=== PATIENT | male | born 1970 | race Caucasian/White ===

== ENCOUNTER 2016-11-06 12:40 | Emergency (ER) | payer OTHER ==
--- NOTE | 2016-11-06 13:48 | EDM.PDOC ---
ED HPI SEIZURE COMPLAINT - General Chief Complaint: Syncope Stated Complaint: LEFT WRIST & LEG - [facility] Time Seen by Provider: 11/06/16 13:47 Source of Information: Reports: Patient, Old records, RN, RN notes reviewed History Limitations: Reports: No limitations - History of Present Illness INITIAL COMMENTS - FREE TEXT/NARRATIVE: Pt c/o left wrist pain and swelling sustained approx. 3 days ago when he fainted for an unknown reason at home. Denies CP, SOB, or any prior Hx of syncope. Denies any other injury. Also pt accidentally cut his left medial thigh approx. 4 days ago and wanted it checked to make sure it isn't getting infected. Timing/Duration: Reports: seconds: (unknown) Event Occurred (Where): home Event (Witnessed/Unwitnessed): unwitnessed Location: Reports: upper extremity, left Context: Denies: recent ETOH, new/change in medications, missed med dose(s), illness, trauma, photo stimulation, activity/exercise Pre Event Symptom(s): Reports: other (lightheaded) Event Symptoms: Reports: syncope Post Event Symptoms: Reports: other (none) Associated Injuries: Reports: upper extremity, left - Related Data Allergies/ADRs: Allergies Allergy/AdvReac Type Severity Reaction Status Date / Time No Known Allergies Allergy Verified 11/06/16 13:31 Past Medical History Psychiatric History: Reports: Depression, PTSD Social & Family History - Family History Family Medical History: Noncontributory - Tobacco Use Smoking Status *Q: Current Every Day Smoker Tobacco Use Within Last Twelve Months: Cigarettes Smoking Cessation Information Provided To Patient: No - Alcohol Use Alcohol Use History: No - Recreational Drug Use Recreational Drug Use: No - Living Situation & Occupation Living situation: Reports: alone Occupation: disabled ED ROS GENERAL - Review of Systems Review Of Systems: ROS reveals no pertinent complaints other than HPI. - Physical Exam Exam: See Below Exam Limited By: No limitations General Appearance: alert, WD/WN, no apparent distress Eye Exam: bilateral eye: EOMI, normal inspection Ears: normal external exam, hearing grossly normal Nose: normal inspection, normal mucosa, no blood Throat/Mouth: Normal inspection, Normal lips, Normal teeth, Normal gums, Normal oropharynx, Normal voice, No airway compromise Head Exam: atraumatic, normocephalic Neck: normal inspection, supple, non-tender, full range of motion. No: lymphadenopathy (L), lymphadenopathy (R) Respiratory/Chest: no respiratory distress, lungs clear, normal breath sounds, no accessory muscle use, chest non-tender Cardiovascular: normal peripheral pulses, regular rate, rhythm, no edema, no gallop, no JVD, no murmur, no rub GI/Abdominal: normal bowel sounds, soft, non tender, no distention (Male) Exam: Deferred Rectal (Males) Exam: Deferred Neuro Exam (Abbreviated): alert, oriented, CN II-XII intact, normal cognition, normal gait, no motor/sensory deficits Back Exam: normal inspection Extremities: normal capillary refill, joint swelling (left wrist), limited range of motion (due to pain at left wrist). No: increased warmth, pallor, redness Psychiatric: normal affect, normal mood Skin Exam: Warm, Dry, Normal color, No rash, Wound/incision (subacute left thigh linear laceration 2cm, heal) ED PROCEDURES - Splinting Left Upper Extremity Splint site: left wrist Pre-procedure NV status: normal Post-procedure NV status: normal Splint material: metal Splint design: volar Applied & form fitted by: nurse Provider post-splint application NV check: NV status normal, good position Complications: No EKG INTERPRETATION EKG Date: 11/06/16 Time: 14:12 Rhythm: other (SR) Rate (beats/min): 71 [place]: normal P-wave: present QRS: other (nonspecific IVCD) ST-T: normal QT: normal Comparison: NA - no prior EKG Course - Vital Signs Last Recorded V/S: VS review on RN's documentation. - Orders/Labs/Meds Orders: Active Orders 24 hr Category Date Time Status EKG 12 Lead [EKG Documentation Completion] [RC] STAT Care 11/06/16 14:10 Active Orthostatic Vital Signs [RC] ASDIRECTED Care 11/06/16 14:30 Active Vaccines to be Administered [RC] PER UNIT ROUTINE Care 11/06/16 15:04 Active DME for Discharge [COMM] Routine Oth 11/06/16 14:59 Ordered Labs: Laboratory Tests 11/06/16 11/06/16 Range/Units 14:20 14:20 WBC 7.4 (5.0-10.0) 10^3/uL RBC 3.76 L (4.6-6.2) 10^6/uL Hgb 11.7 L (14.0-18.0) g/dL Hct 36.0 L (40.0-54.0) % MCV 95.7 (80-100) fL MCH 31.1 (27.0-34.0) pg MCHC 32.5 L (33.0-35.0) g/dL Plt Count 188 (150-450) 10^3/uL Neut % (Auto) 56.1 (42.2-75.2) % Lymph % (Auto) 34.7 (20.5-50.1) % [place] % (Auto) 7.3 (2-8) % Eos % (Auto) 1.2 (1.0-3.0) % Baso % (Auto) 0.7 (0.0-1.0) % Sodium 137 (135-145) mmol/L Potassium 4.0 (3.6-5.0) mmol/L Chloride 105 (101-111) mmol/L Carbon Dioxide 23.0 (21.0-31.0) mmol/L Anion Gap 13.0 BUN 15 (7-18) mg/dL Creatinine 0.7 (0.6-1.3) mg/dL Est Cr Clr Drug Dosing TNP Estimated GFR (MDRD) > 60 BUN/Creatinine Ratio 21.42 Glucose 107 H (74-105) mg/dL Calcium 8.5 (8.4-10.2) mg/dl Total Bilirubin 0.5 (0.2-1.0) mg/dL AST 24 (10-42) IU/L ALT 20 (10-60) IU/L Alkaline Phosphatase 77 (42-121) IU/L Troponin I < 0.02 (0.00-0.02) ng/ml Total Protein 7.0 (6.7-8.2) g/dl Albumin 4.1 (3.2-5.5) g/dl Globulin 2.9 Albumin/Globulin Ratio 1.41 Meds: Medications Discontinued Medications Generic Name Dose Route Start Last Admin Trade Name Freq PRN Reason Stop Dose Admin Diphtheria/Tetanus/Acell Pertussis 0.5 ml 11/06/16 15:04 Adacel IM 11/06/16 15:05 .ONCE ONE - Radiology Interpretation Free Text/Narrative:: Xray left wrist: no fracture, sprain per Rad. report. CT Results Date: 11/06/16 Departure - Departure Time of Disposition: 14:51 Disposition: Home, Self-Care 01 Condition: fair Clinical Impression: Left wrist sprain Qualifiers: Encounter type: initial encounter Qualified Code(s): S63.502A - Unspecified sprain of left wrist, initial encounter Syncope Qualifiers: Syncope type: unspecified Qualified Code(s): R55 - Syncope and collapse Laceration of left thigh without complication Qualifiers: Encounter type: initial encounter Qualified Code(s): S71.112A - Laceration without foreign body, left thigh, initial encounter Anemia Qualifiers: Anemia type: unspecified type Qualified Code(s): D64.9 - Anemia, unspecified Instructions: Syncope, [id number], Wrist Sprain, Nonsutured Laceration Care Forms: ED Department Discharge Additional Instructions: Rest, ice pack, and elevate left wrist to reduce pain and swelling. Wear left wrist splint as needed for comfort for 7 to 10 days. May use over the counter Bacitracin Ointment to left thigh wound twice a day for 5 days. Follow up in clinic this with for recheck and further evaluation of your syncopal (fainting) episode, and mild anemia. - My Orders Last 24 Hours: My Active Orders 11/06/16 14:10 EKG 12 Lead [EKG Documentation Completion] [RC] STAT 11/06/16 14:30 Orthostatic Vital Signs [RC] ASDIRECTED 11/06/16 14:59 DME for Discharge [COMM] Routine 11/06/16 15:04 Vaccines to be Administered [RC] PER UNIT ROUTINE - Assessment/Plan Last 24 Hours: My Active Orders 11/06/16 14:10 EKG 12 Lead [EKG Documentation Completion] [RC] STAT 11/06/16 14:30 Orthostatic Vital Signs [RC] ASDIRECTED 11/06/16 14:59 DME for Discharge [COMM] Routine 11/06/16 15:04 Vaccines to be Administered [RC] PER UNIT ROUTINE
--- NOTE | 2016-11-06 14:00 | CR ---
CLINICAL HISTORY: 46-year-old male with swelling and pain left wrist associated with fall. INTERPRETATION: Subtle deformity radial styloid has appearance of old fracture despite some overlyin g soft tissue swelling. Clinical correlation? Chronic reactive arthritic changes first carpometacarpal, first metacarpophalangeal and interphalang eal joints of the left hand. No sign of foreign body, metacarpal or other wrist fracture/dislocation. CONCLUSION: Chronic arthritis. Soft tissue swelling consistent with severe sprain. (Apparent old dis annette radial fracture).
[2016-11-06 14:48] LABS: CHLORIDE,CL 105 mmol/L (101-111); SODIUM,NA 137 mmol/L (135-145)
[2016-11-06] MEDS ORDERED: Diphtheria,Pertussis(Acell),Tetanus Vaccine 0.5 ML SDV IM ONE (15:04)
[2016-11-06] MEDS ORDERED: Ibuprofen 800 MG Tab PO ONE (15:12)
[2016-11-06 15:16] VITALS: BP 122/77
--- NOTE | 2016-11-08 07:33 | EKG ---
11/06/2016- AGUILA CHRISTIANSEN R - EKG per my reading shows sinus rhythm at a rate of 71. No acute ST changes. [facility] /[id number]
== END 2016-11-06 15:26 | disposition home or self-care (01) ==
LOC: DL.ED 12:40
DX: S71.112A Laceration without foreign body, left thigh, initial encounter (principal); S63.502A Unspecified sprain of left wrist, initial encounter; R55 Syncope and collapse; D64.9 Anemia, unspecified; F32.9 Major depressive disorder, single episode, unspecified; F17.210 Nicotine dependence, cigarettes, uncomplicated; Z23 Encounter for immunization; W45.8XXA Other foreign body or object entering through skin, initial encounter
CPT/HCPCS: 29125; 36415; 73110-LT; 80053; 84484; 85025; 90471; 90715; 93005; 93010; 99284; 99285

== ENCOUNTER 2018-11-13 07:05 | Day surgery (SDC) | payer OTHER ==
[~2018-11-13 07:05] MED LIST: Midazolam 1 MG/ML 2 ML SDV ONE; fentaNYL 100 MCG/2 ML SDV ONE
[2018-11-13] MEDS ORDERED: Benzocaine 20% Topical Spray UD MUCMEM ONE ×2 (07:06→08:02)
[2018-11-13] MEDS ORDERED: fentaNYL 100 MCG/2 ML SDV IV ONE ×4 (07:06→08:15)
[2018-11-13] MEDS ORDERED: Midazolam 1 MG/ML 2 ML SDV IV ONE ×9 (07:06→08:18)
[2018-11-13] MEDS ORDERED: Dextrose 5%-0.45% NaCl 1,000 ML IV SCH (07:45)
--- NOTE | 2018-11-13 09:39 | OR ---
DATE: 11/13/2018 PREOPERATIVE DIAGNOSIS: Anemia. POSTOPERATIVE DIAGNOSIS: Anemia. PROCEDURE: EGD. ANESTHESIA: Conscious sedation with IV Versed and fentanyl. SPECIMEN: None. OPERATIVE FINDINGS: Normal EGD. RECOMMENDATION: We will proceed with colonoscopy. INDICATION FOR PROCEDURE: This 48-year-old male has anemia with a hemoglobin of 10. DESCRIPTION OF PROCEDURE: After adequate preparation, a gastroscope was inserted into the esophagus. This was passed down to the distal esophagus. He shows no evidence of reflux esophagitis, masses, ulcers, or bleeding sites. He does not have a hiatal hernia. The scope was advanced into the stomach. Both forward and retroflexed views were done and are normal. The scope was advanced through the pylorus, and the duodenum was also normal. Air was suctioned from the stomach, and the scope removed. [facility] /[id number] cc: [facility]
--- NOTE | 2018-11-13 10:06 | OR ---
DATE: 11/13/2018 PREOPERATIVE DIAGNOSIS: Anemia with hemoglobin of 10. POSTOPERATIVE DIAGNOSIS: Anemia with hemoglobin of 10. PROCEDURE: Total colonoscopy with snare excision of small sigmoid polyp and cautery excision of other multiple small sigmoid polyps. ANESTHESIA: Conscious sedation with IV Versed and fentanyl. SPECIMEN: Sigmoid polyp. OPERATIVE FINDINGS: Normal colonoscopy with an occasional scattered sigmoid diverticula and multiple small polyps. I did not find any explanation for his anemia in the colon. INDICATION FOR PROCEDURE: This 48-year-old male has a hemoglobin of 10. He has not had a prior colonoscopy. DESCRIPTION OF PROCEDURE: After adequate preparation, a colonoscope was inserted into the rectum. This was easily passed all the way to the cecum. Confirmation of the cecum was made by visualization of the ileocecal valve and palpation in the right lower quadrant. The bowel prep was very good. On withdrawal of the scope, he does have a few scattered diverticula, mostly on the left side of the colon, and in the lower sigmoid, had one relatively larger polyp and multiple small polyps surrounding this. I snared off the larger of the polyps and retrieved it for pathological evaluation. The other 4 to 5 small polyps were cauterized with the Bovie. Air was suctioned from the colon, and the scope removed. [facility] /[id number] cc: [facility]
== END 2018-11-13 10:35 | disposition home or self-care (01) ==
LOC: DL.ENDO 07:05
PROVIDERS: ATTEND Surgery
DX: D64.9 Anemia, unspecified (principal); D12.5 Benign neoplasm of sigmoid colon; K57.30 Diverticulosis of large intestine without perforation or abscess without bleeding; F17.210 Nicotine dependence, cigarettes, uncomplicated
CPT/HCPCS: 43235; 45385; 88305; A9270; J2250; J3010; J7042; 45384

== ENCOUNTER 2020-03-14 12:27 | Emergency (ER) | payer OTHER ==
[2020-03-14] MEDS ORDERED: Lidocaine 1% 30 ML SDV INJECT ONE (12:34)
[2020-03-14] MEDS ORDERED: Bacitracin Oint 1 GM U/D Packet TOP ONE (12:34)
--- NOTE | 2020-03-14 12:56 | EDM.PDOC ---
ED HPI GENERAL MEDICAL PROBLEM - General Stated Complaint: cut hand Time Seen by Provider: 03/14/20 12:35 Source of Information: Reports: Patient History Limitations: Reports: No Limitations - History of Present Illness INITIAL COMMENTS - FREE TEXT/NARRATIVE: This 50 yo male patient reports to the ED with a laceration to his left thumb. The patient reports he was cutting leather with a scalpel when he accidentally cut his hand. The patient attempted to stop the bleeding at home, but could not get the bleeding under control. Onset: Today Duration: Minutes: Location: Reports: Upper Extremity, Left Quality: Reports: Ache, Dull Severity: Mild Improves with: Reports: None Worsens with: Reports: None Context: Reports: Activity Associated Symptoms: Reports: No Other Symptoms - Related Data Allergies Allergy/AdvReac Type Severity Reaction Status Date / Time No Known Allergies Allergy Verified 03/14/20 12:31 Home Meds: Home Meds Ibuprofen [Motrin] 800 mg PO TID 11/11/18 [History] LORazepam 0.5 mg PO .PRN PRN 11/11/18 [History] Omeprazole 20 mg PO BID 11/11/18 [History] Prazosin HCl [Prazosin] 10 mg PO BEDTIME 11/11/18 [History] QUEtiapine Fumarate [Seroquel Xr] 600 mg PO BEDTIME 11/11/18 [History] Zolpidem [Ambien] 10 mg PO .PRN BEDTIME PRN 11/11/18 [History] atorvaSTATin Calcium [Atorvastatin Calcium] 80 mg PO BEDTIME 11/11/18 [History] carBAMazepine [Carbamazepine] 200 mg PO ASDIRECTED 11/11/18 [History] FLUoxetine HCl [Prozac] 60 mg PO DAILY 11/12/18 [History] Multivitamin with Minerals [Multivitamins with Minerals] 1 each PO DAILY 11/12/18 [History] metFORMIN [Glucophage XR] 500 mg PO BIDMEALS 03/14/20 [History] Past Medical History HEENT History: Reports: Impaired Vision Other HEENT History: reading glasses. lower front implanted Cardiovascular History: Reports: High Cholesterol, Hypertension Respiratory History: Reports: None Gastrointestinal History: Reports: GERD Genitourinary History: Reports: None Musculoskeletal History: Reports: Arthritis, Other (See Below) Other Musculoskeletal History: Left wrist. small ganglion cyst of left wrist. Chondromalacia of right knee. Complete tear of right rotator cuff. Arthrosis of right acromioclavicular joint. Tendinopathy of right biceps tendon Neurological History: Reports: Seizure, Other (See Below) Other Neuro History: PTSD Psychiatric History: Reports: Depression, PTSD Endocrine/Metabolic History: Reports: Other (See Below) Other Endocrine/Metabolic History: pre diabetic Hematologic History: Reports: Anemia Immunologic History: Reports: None Oncologic (Cancer) History: Reports: None Dermatologic History: Reports: None - Infectious Disease History Infectious Disease History: Reports: None - Past Surgical History HEENT Surgical History: Reports: None Cardiovascular Surgical History: Reports: None Male Surgical History: Reports: Vasectomy Musculoskeletal Surgical History: Reports: Arthroscopic Knee, Other (See Below) Other Musculoskeletal Surgeries/Procedures:: Arthroscopy of kne ACL\LCL RECON WITH LTP FX [place] 1992. Rigth arthroscopic subscapularis, supraspinatus, infraspinatus repairs, subacromial decompression, DCE, biceps tenodesis, DOS: 11/29/17 Social & Family History - Family History Family Medical History: Noncontributory - Tobacco Use Smoking Status *Q: Current Every Day Smoker Years of Tobacco use: 30 Packs/Tins Daily: 1 - Caffeine Use Caffeine Use: Reports: Coffee Caffeine Use Comment: 5-6 cups dialy - Recreational Drug Use Recreational Drug Use: No - Living Situation & Occupation Living situation: Reports: Alone Occupation: Disabled ED ROS GENERAL - Review of Systems Review Of Systems: Comprehensive ROS is negative, except as noted in HPI. ED EXAM, SKIN/RASH Exam: See Below Exam Limited By: No Limitations General Appearance: Alert, WD/WN, No Apparent Distress Eye Exam: Bilateral Eye: EOMI, Normal Inspection, PERRL Ears: Normal External Exam Nose: Normal Inspection, No Blood Throat/Mouth: Normal Lips, Normal Teeth, Normal Voice, No Airway Compromise Head: Atraumatic, Normocephalic Neck: Normal Inspection, Supple, Non-Tender, Full Range of Motion Respiratory/Chest: No Respiratory Distress, Lungs Clear, Normal Breath Sounds, No Accessory Muscle Use, Chest Non-Tender Cardiovascular: Normal Peripheral Pulses, Regular Rate, Rhythm GI/Abdominal: Normal Bowel Sounds, Soft, Non-Tender, No Organomegaly, No Distention, No Abnormal Bruit, No Mass (Male) Exam: Deferred Rectal (Males) Exam: Deferred Back Exam: Normal Inspection Extremities: Normal Range of Motion, Non-Tender, No Pedal Edema, Normal Capillary Refill, Arm Pain Neurological: Alert, Oriented, Normal Gait Psychiatric: Normal Affect, Normal Mood Skin: Warm, Dry, Normal Color, No Rash, Wound/Incision Location, Skin: Upper Extremity, Left Characteristics: Linear Associated features: No: Warmth, Tenderness, Swelling, Induration Lymphatic: No Adenopathy ED SKIN PROCEDURES - Laceration/Wound Repair Left Digit - 1st (Thumb) Appearance: Subcutaneous Distal NVT: Neuro & Vascular Intact Anesthetic Type: Local Local Anesthesia - Lidocaine (Xylocaine): 1% Plain Local Anesthetic Volume: 3cc Skin Prep: Chlorhexidine (Hibiciens), Saline Exploration/Debridement/Repair: Wound Explored, No Foreign Material Found Closed with: Sutures Lac/Wound length In cm: 2.0 Suture Size: 4-0 # of Sutures: 6 Suture Type: Prolene, Interrupted, Simple Drain Placement: No Sterile Dressing Applied: Nurse Tetanus Status Addressed: Other (Last was in 2017) Complications: No Course - Vital Signs Last Recorded V/S: Last Vital Signs Temp 36.3 C 03/14/20 12:35 Pulse 76 03/14/20 12:35 Resp 16 03/14/20 12:35 BP 141/73 H 03/14/20 12:35 Pulse Ox 98 03/14/20 12:35 - Orders/Labs/Meds Meds: Medications Discontinued Medications Generic Name Dose Route Start Last Admin Trade Name Rejiq PRN Reason Stop Dose Admin Bacitracin 1 dose 03/14/20 12:34 03/14/20 12:47 Bacitracin Oint 1 Gm TOP 03/14/20 12:35 1 dose ONETIME ONE Administration Lidocaine HCl 30 ml 03/14/20 12:34 03/14/20 12:42 Xylocaine-Mpf 1% INJECT 03/14/20 12:35 30 ml ONETIME ONE Administration Departure - Departure Time of Disposition: 12:55 Disposition: Home, Self-Care 01 Condition: Fair Clinical Impression: Laceration of left thumb Qualifiers: Encounter type: initial encounter Damage to nail status: without damage Foreign body presence: without foreign body Qualified Code(s): S61.012A - Laceration without foreign body of left thumb without damage to nail, initial encounter - Discharge Information *PRESCRIPTION DRUG MONITORING PROGRAM REVIEWED*: No *COPY OF PRESCRIPTION DRUG MONITORING REPORT IN PATIENT AMY: No Instructions: Laceration Care, Adult, [id number], Sutures, Stephany, or Adhesive Wound Closure, [id number] Forms: ED Department Discharge Care Plan Goals: The patient was advised of the examination results during the visit. The laceration margins were well approximated during the visit. The patient should keep the area clean and dry over the next 48 hours. The patient should have the sutures removed in about 14 days. If the patient has any additional symptoms or concerns, the patient should either return to the emergency department or follow-up with his primary care facility Sepsis Event Note (ED) - Evaluation Sepsis Screening Result: No Definite Risk - Focused Exam Vital Signs: Vital Signs Temp Pulse Resp BP Pulse Ox 03/14/20 12:35 36.3 C 76 16 141/73 H 98
== END 2020-03-14 13:22 | disposition home or self-care (01) ==
LOC: DL.ED 12:27
DX: S61.012A Laceration without foreign body of left thumb without damage to nail, initial encounter (principal); I10 Essential (primary) hypertension; E78.00 Pure hypercholesterolemia, unspecified; K21.9 Gastro-esophageal reflux disease without esophagitis; M19.90 Unspecified osteoarthritis, unspecified site; F32.9 Major depressive disorder, single episode, unspecified; F17.210 Nicotine dependence, cigarettes, uncomplicated; Z79.899 Other long term (current) drug therapy; W26.8XXA Contact with other sharp object(s), not elsewhere classified, initial encounter
CPT/HCPCS: 12001; 99282; J2001

== ENCOUNTER 2020-05-02 17:14 | Emergency (ER) | payer OTHER ==
[2020-05-02] MEDS ORDERED: Cephalexin 500 MG Cap PO ONE ×2 (17:15→18:23)
--- NOTE | 2020-05-02 17:27 | EDM.PDOC ---
ED HPI GENERAL MEDICAL PROBLEM - General Stated Complaint: LEFT FINGER, POINTER Time Seen by Provider: 05/02/20 17:26 Source of Information: Reports: Patient, RN, RN Notes Reviewed History Limitations: Reports: No Limitations - History of Present Illness INITIAL COMMENTS - FREE TEXT/NARRATIVE: Patient presents to ER with complaint of laceration/avulsion to the left distal index finger. Patient states he was using a table saw when he got his finger caught in a saw. Patient states tetanus was last updated in 2017. Onset: Today, Sudden Location: Reports: Upper Extremity, Left left first digit Pain Score (Numeric/FACES): 10 - Related Data Allergies Allergy/AdvReac Type Severity Reaction Status Date / Time No Known Allergies Allergy Verified 05/02/20 17:40 Home Meds: Home Meds Ibuprofen [Motrin] 800 mg PO TID 11/11/18 [History] LORazepam 0.5 mg PO .PRN PRN 11/11/18 [History] Omeprazole 20 mg PO BID 11/11/18 [History] Prazosin HCl [Prazosin] 10 mg PO BEDTIME 11/11/18 [History] QUEtiapine Fumarate [Seroquel Xr] 600 mg PO BEDTIME 11/11/18 [History] Zolpidem [Ambien] 10 mg PO .PRN BEDTIME PRN 11/11/18 [History] atorvaSTATin Calcium [Atorvastatin Calcium] 80 mg PO BEDTIME 11/11/18 [History] carBAMazepine [Carbamazepine] 200 mg PO ASDIRECTED 11/11/18 [History] FLUoxetine HCl [Prozac] 60 mg PO DAILY 11/12/18 [History] Multivitamin with Minerals [Multivitamins with Minerals] 1 each PO DAILY 11/12/18 [History] metFORMIN [Glucophage XR] 500 mg PO BIDMEALS 03/14/20 [History] Past Medical History HEENT History: Reports: Impaired Vision Other HEENT History: reading glasses. lower front implanted Cardiovascular History: Reports: High Cholesterol, Hypertension Respiratory History: Reports: None Gastrointestinal History: Reports: GERD Genitourinary History: Reports: None Musculoskeletal History: Reports: Arthritis, Other (See Below) Other Musculoskeletal History: Left wrist. small ganglion cyst of left wrist. Chondromalacia of right knee. Complete tear of right rotator cuff. Arthrosis of right acromioclavicular joint. Tendinopathy of right biceps tendon Neurological History: Reports: Seizure, Other (See Below) Other Neuro History: PTSD Psychiatric History: Reports: Depression, PTSD Endocrine/Metabolic History: Reports: Other (See Below) Other Endocrine/Metabolic History: pre diabetic Hematologic History: Reports: Anemia Immunologic History: Reports: None Oncologic (Cancer) History: Reports: None Dermatologic History: Reports: None - Infectious Disease History Infectious Disease History: Reports: None - Past Surgical History HEENT Surgical History: Reports: None Cardiovascular Surgical History: Reports: None Male Surgical History: Reports: Vasectomy Musculoskeletal Surgical History: Reports: Arthroscopic Knee, Other (See Below) Other Musculoskeletal Surgeries/Procedures:: Arthroscopy of kne ACL\LCL RECON WITH LTP FX TX 1992. Rigth arthroscopic subscapularis, supraspinatus, infraspinatus repairs, subacromial decompression, DCE, biceps tenodesis, DOS: 11/29/17 Social & Family History - Family History Family Medical History: Noncontributory - Caffeine Use Caffeine Use: Reports: Coffee Caffeine Use Comment: 5-6 cups dialy - Living Situation & Occupation Living situation: Reports: Alone Occupation: Disabled ED ROS GENERAL - Review of Systems Review Of Systems: Comprehensive ROS is negative, except as noted in HPI. ED EXAM, SKIN/RASH Exam: See Below Exam Limited By: No Limitations General Appearance: Alert, WD/WN, No Apparent Distress Eye Exam: Bilateral Eye: EOMI, Normal Inspection Ears: Normal External Exam, Hearing Grossly Normal Nose: Normal Inspection Throat/Mouth: Normal Inspection, Normal Voice, No Airway Compromise Head: Atraumatic, Normocephalic Neck: Normal Inspection, Supple, Non-Tender, Full Range of Motion Respiratory/Chest: No Respiratory Distress, Lungs Clear, Normal Breath Sounds, No Accessory Muscle Use, Chest Non-Tender Cardiovascular: Normal Peripheral Pulses, Regular Rate, Rhythm, No Edema, No Gallop, No JVD, No Murmur, No Rub Peripheral Pulses: 2+: Radial (L), Radial (R) GI/Abdominal: Normal Bowel Sounds, Soft, Non-Tender (Male) Exam: Deferred Rectal (Males) Exam: Deferred Back Exam: Normal Inspection, Full Range of Motion, NT Extremities: Normal Inspection, Normal Range of Motion, Non-Tender, No Pedal Edema, Normal Capillary Refill Neurological: Alert, Oriented, CN II-XII Intact, Normal Cognition, Normal Gait, Normal Reflexes, No Motor/Sensory Deficits Psychiatric: Normal Affect, Normal Mood Skin: Warm, Dry, Wound/Incision (5 cm laceration to the ventral and dorsal aspect of the left distal index finger, through the nailbed) Location, Skin: Upper Extremity, Left Lymphatic: No Adenopathy Course - Vital Signs Last Recorded V/S: Last Vital Signs Temp 97.6 F 05/02/20 17:30 Pulse 78 05/02/20 17:30 Resp 20 05/02/20 17:30 BP 142/83 H 05/02/20 17:30 Pulse Ox 97 05/02/20 17:30 - Orders/Labs/Meds Meds: Medications Discontinued Medications Generic Name Dose Route Start Last Admin Trade Name Freq PRN Reason Stop Dose Admin Bacitracin 1 dose 05/02/20 17:42 05/02/20 18:22 Bacitracin Oint 1 Gm TOP 05/02/20 17:43 1 dose ONETIME ONE Administration Cephalexin 500 mg 05/02/20 18:23 Keflex PO 05/02/20 18:24 ONETIME ONE Cephalexin Confirm 05/02/20 18:29 Keflex Administered 05/02/20 18:30 Dose 500 mg .ROUTE .STK-MED ONE Lidocaine/Epinephrine 20 ml 05/02/20 17:42 05/02/20 18:22 Xylocaine 1% With Epinephrine 1:100,000 INJECT 05/02/20 17:43 10 ml ONETIME ONE Administration - Re-Assessments/Exams Free Text/Narrative Re-Assessment/Exam: 05/02/20 18:34 Discussed patient case with Dr. Bedolla who states the patient will more than likely need an amputation. he states to clean the wound out, suture together what is able to be sutured. He states the patient should be seen in his clinic in the morning. Antibiotics ordered. Departure - Departure Time of Disposition: 18:28 Disposition: Home, Self-Care 01 Condition: Fair Clinical Impression: Open fracture of finger of left hand Qualifiers: Encounter type: initial encounter Finger: index finger Phalanx: distal Fracture alignment: displaced Qualified Code(s): S62.631B - Displaced fracture of distal phalanx of left index finger, initial encounter for open fracture Avulsion fracture of distal phalanx of finger Qualifiers: Encounter type: initial encounter Fracture type: open Qualified Code(s): S62.639B - Displaced fracture of distal phalanx of unspecified finger, initial encounter for open fracture - Discharge Information *PRESCRIPTION DRUG MONITORING PROGRAM REVIEWED*: No *COPY OF PRESCRIPTION DRUG MONITORING REPORT IN PATIENT AMY: No Instructions: Finger Fracture, Adult, [id number], Cast or Splint Care, Adult, [id number] Forms: ED Department Discharge Additional Instructions: Take cephalexin in the morning Be to the [facility] between 8 and 11 tomorrow morning [facility] [phone] Dr. Bedolla, Orthopedic Surgeon is who you will see Sepsis Event Note (ED) - Focused Exam Vital Signs: Vital Signs Temp Pulse Resp BP Pulse Ox 05/02/20 17:30 97.6 F 78 20 142/83 H 97
[2020-05-02] MEDS ORDERED: Lidocaine 1% with EPINEPHrine 1:100,000 20 ML MDV INJECT ONE (17:42)
[2020-05-02] MEDS ORDERED: Bacitracin Oint 1 GM U/D Packet TOP ONE (17:42)
--- NOTE | 2020-05-02 17:53 | CR ---
PROCEDURE INFORMATION: Exam: XR Left Finger(s) Exam date and time: 05/02/2020 5:28 PM Age: 50 years old Clinical indication: Other: Pain; Additional info: Finger in table saw, ? bone involvement TECHNIQUE: Imaging protocol: XR Left fingers. Views: Minimum 2 views. COMPARISON: No relevant prior studies available. FINDINGS: Bones/joints: There is a comminuted multi fragmented fracture of the distal tuft of the 2nd digit with associated soft tissue injury. The fracture extends to the joint. Soft tissues: Tissue swelling with radiopaque densities within the soft tissues. There is also a defect at the distal tuft consistent with subcutaneous injury. IMPRESSION: Comminuted fracture of the of the 2nd digit with extension of the fracture line to the DIP joint. There is associated soft tissue swelling and injury.
[2020-05-02] MEDS ORDERED: Cephalexin 500 MG Cap ONE (18:29)
== END 2020-05-02 18:38 | disposition home or self-care (01) ==
LOC: DL.ED 17:14
DX: S62.631B Displaced fracture of distal phalanx of left index finger, initial encounter for open fracture (principal); K21.9 Gastro-esophageal reflux disease without esophagitis; E78.00 Pure hypercholesterolemia, unspecified; I10 Essential (primary) hypertension; F32.9 Major depressive disorder, single episode, unspecified; Z79.899 Other long term (current) drug therapy; W23.0XXA Caught, crushed, jammed, or pinched between moving objects, initial encounter
CPT/HCPCS: 12002; 73140; 99283; A9270; 99284

== ENCOUNTER → 2022-08-29 | Day surgery (SDC) | payer OTHER ==
[~2022-08-29] MED LIST changes: +Dextrose 5%-0.45% NaCl 1,000 ML IV SCH; +Midazolam 1 MG/ML 2 ML SDV IV ONE; +fentaNYL 100 MCG/2 ML SDV IV ONE
== END | disposition home or self-care (01) ==
LOC: DL.ENDO 06:59
PROVIDERS: ATTEND Internal Medicine Gastroenterology
DX: D50.9 Iron deficiency anemia, unspecified (principal); E11.43 Type 2 diabetes mellitus with diabetic autonomic (poly)neuropathy; K31.84 Gastroparesis; E66.09 Other obesity due to excess calories; E78.5 Hyperlipidemia, unspecified; Z68.38 Body mass index [BMI] 38.0-38.9, adult; Z98.890 Other specified postprocedural states
CPT/HCPCS: 43239; 87077; J2250; J3010; J7042; 88305

== ENCOUNTER 2022-08-31 06:36 | Day surgery (SDC) | payer OTHER ==
[2022-08-31] MEDS ORDERED: Midazolam 1 MG/ML 2 ML SDV IV ONE ×7 (06:37→07:42)
[2022-08-31] MEDS ORDERED: fentaNYL 100 MCG/2 ML SDV IV ONE ×3 (06:37→07:32)
[2022-08-31] MEDS ORDERED: Midazolam 1 MG/ML 2 ML SDV ONE (06:48)
[2022-08-31] MEDS ORDERED: fentaNYL 100 MCG/2 ML SDV ONE (06:49)
[2022-08-31] MEDS ORDERED: Sodium Chloride 0.9% 10 ML Syringe FLUSH PRN (07:00)
[2022-08-31] MEDS ORDERED: Dextrose 5%-0.45% NaCl 1,000 ML IV SCH (07:00)
[2022-08-31] MEDS ORDERED: Sodium Chloride 0.9% 10 ML Syringe FLUSH SCH (09:00)
== END 2022-08-31 09:00 | disposition home or self-care (01) ==
LOC: DL.ENDO 06:36
PROVIDERS: ATTEND Internal Medicine Gastroenterology
DX: K62.1 Rectal polyp (principal); K57.30 Diverticulosis of large intestine without perforation or abscess without bleeding; E66.09 Other obesity due to excess calories; D50.9 Iron deficiency anemia, unspecified; E78.5 Hyperlipidemia, unspecified; D64.9 Anemia, unspecified; F32.A Depression, unspecified; F43.10 Post-traumatic stress disorder, unspecified; E11.9 Type 2 diabetes mellitus without complications; Z68.39 Body mass index [BMI] 39.0-39.9, adult; Z98.890 Other specified postprocedural states
CPT/HCPCS: 45385; 88305; J2250; J3010; J7042

== ENCOUNTER 2024-01-23 14:14 | Emergency (ER) | payer OTHER ==
[2024-01-23] MEDS: Diphtheria,Pertussis(Acell),Tetanus Vaccine 0.5 ML Syringe IM ONE (15:06)
[2024-01-23] MEDS: Acetaminophen 500 MG Tab PO ONE (15:06)
[2024-01-23] MEDS: Lidocaine 1% 30 ML SDV INJECT ONE (15:07)
[2024-01-23] MEDS: Bacitracin Oint 1 GM U/D Packet TOP ONE (15:07)
== END 2024-01-23 15:22 | disposition home or self-care (01) ==
LOC: DL.ED 14:14
DX: S61.011A Laceration without foreign body of right thumb without damage to nail, initial encounter (principal); S61.210A Laceration without foreign body of right index finger without damage to nail, initial encounter; S61.212A Laceration without foreign body of right middle finger without damage to nail, initial encounter; E78.00 Pure hypercholesterolemia, unspecified; E66.9 Obesity, unspecified; E11.9 Type 2 diabetes mellitus without complications; K21.9 Gastro-esophageal reflux disease without esophagitis; Z23 Encounter for immunization; Z79.84 Long term (current) use of oral hypoglycemic drugs; Z79.899 Other long term (current) drug therapy; Z68.39 Body mass index [BMI] 39.0-39.9, adult; W29.8XXA Contact with other powered hand tools and household machinery, initial encounter
CPT/HCPCS: 64450; 90471; 90715; 99283; 99283-25; A9270-GY; J3490